=== PATIENT | female | born 1980 | race Caucasian/White ===

== ENCOUNTER 2023-06-20 17:44 | Emergency (ER) | payer OTHER ==
[2023-06-20] MEDS: Lidocaine 1% 5 ML VIAL INJECT ONE (18:45)
[2023-06-20] MEDS: Bacitracin Oint 1 GM U/D Packet TOP ONE (19:30)
== END 2023-06-20 19:40 | disposition home or self-care (01) ==
LOC: JP.ED 17:44
DX: S61.212A Laceration without foreign body of right middle finger without damage to nail, initial encounter (principal); S61.214A Laceration without foreign body of right ring finger without damage to nail, initial encounter; W26.0XXA Contact with knife, initial encounter; Y93.89 Activity, other specified; Y99.0 Civilian activity done for income or pay
CPT/HCPCS: 12001; 12002; 99282; 99283